=== PATIENT | female | born 1960 | race Caucasian/White ===

== ENCOUNTER 2021-03-01 16:16 | Emergency (ER) | payer OTHER ==
--- NOTE | 2021-03-01 17:49 | RAD REPORT ---
EXAM DESCRIPTION: RAD - Wrist Left 3 View - 03/01/2021 5:31 pm CLINICAL HISTORY: PAIN COMPARISON: No comparisons FINDINGS: Distal radial impaction fracture with intra-articular extension. A fragment including port ions of the articular surface is displaced dorsally. No dislocation. No other fractures identified. IMPRESSION: Distal radial impaction fracture with intra-articular extension.
[2021-03-01] MEDS ORDERED: ONDANSETRON 4 MG (ODT) TAB ONE ×2 (20:41→21:06)
[2021-03-01] MEDS ORDERED: MORPHINE 4 MG/ML SYR ONE ×2 (20:41→21:00)
[2021-03-01] MEDS ORDERED: ONDANSETRON 4 MG/2 ML VIAL ONE (21:00)
--- NOTE | 2021-03-01 21:53 | ER ---
Nurse's Notes [facility] Name: Aura Guidry Age: 60 yrs Sex: Female : 1960 Arrival Date: 03/01/2021 Time: 16:21 Bed 28 Private MD: Diagnosis: Distal Radial Fracture Presentation: 03/01 16:42 Chief complaint: EMS states: fell from standing , felt a pop in left wrist. Coronavirus iw screen: At this time, the client does not indicate any symptoms associated with coronavirus-19. Ebola Screen: Patient negative for fever greater than or equal to 101.5 degrees Fahrenheit, and additional compatible Ebola Virus Disease symptoms Patient denies exposure to infectious person. Patient denies travel to an Ebola-affected area in the 21 days before illness onset. No symptoms or risks identified at this time. Initial Sepsis Screen: Does the patient meet any 2 criteria? No. Patient's initial sepsis screen is negative. Does the patient have a suspected source of infection? No. Patient's initial sepsis screen is negative. Risk Assessment: Do you want to hurt yourself or someone else? Patient reports no desire to harm self or others. 16:42 Method Of Arrival: EMS: [facility] iw 16:42 Acuity: MABEL 4 iw Historical: - Allergies: 21:58 No Known Allergies; ea - Home Meds: 21:58 None [Active]; ea - PMHx: 21:58 None; ea - PSHx: 21:58 None; ea - Immunization history:: Adult Immunizations up to date. - Social history:: Smoking status: unknown. Screenin:22 Abuse screen: Denies threats or abuse. Nutritional screening: No deficits noted. em Tuberculosis screening: No symptoms or risk factors identified. Fall Risk None identified. Assessment: 21:57 General: Appears in no apparent distress. Behavior is calm, cooperative. Pain: ea Complains of pain in left arm. Neuro: Level of Consciousness is awake, alert, obeys commands, Oriented to person, place, time. Respiratory: Airway is patent Respiratory effort is even, unlabored, Respiratory pattern is regular, symmetrical. Derm: Skin is pink, warm \T\ dry. Vital Signs: 17:00 BP 148 / 74; Pulse 90; Resp 16; Temp 98.0; Pulse Ox 95% on R/A; sv ED Course: 16:21 Patient arrived in ED. iw 16:43 Triage completed. iw 17:30 Wrist Left (3 View) XRAY In Process Unspecified. EDMS 19:14 Eusebio Hardin PA is PHCP. [facility] 19:14 Дмитрий Santana MD is Attending Physician. [facility] 19:22 Harshil Benitez, RN is Primary Nurse. em 19:22 Patient has correct armband on for positive identification. Bed in low position. Call em light in reach. 21:45 Orthoglass splint: Sugar tong splint applied on left arm. ds4 21:53 Tai Sierra MD is Referral Physician. [facility] 21:58 Arm band placed on right wrist. Patient placed in an exam room, on a stretcher, on ea pulse oximetry. 21:58 No provider procedures requiring assistance completed. Patient did not have IV access ea during this emergency room visit. Administered Medications: 20:49 Drug: morphine 4 mg Route: IM; Site: left deltoid; ea 20:49 Drug: Zofran (Ondansetron) 4 mg Route: PO; ea Outcome: 21:53 Discharge ordered by . [facility] 21:58 Discharged to home ambulatory. ea 21:58 Condition: stable 21:58 Discharge instructions given to patient, Instructed on discharge instructions, follow up and referral plans. 21:59 Patient left the ED. ea Signatures: Dispatcher [employer] Luz Marina Clarke, RN Eusebio Osman PA PA [facility] Harshil Benitez, RN Kimberly Ruano RN RN iw Swanson, Donovan ds4 Florina Mae RN RN ea
--- NOTE | 2021-03-01 21:53 | EDPHYS ---
Physician Documentation [facility] Name: Aura Guidry Age: 60 yrs Sex: Female : 1960 Arrival Date: 03/01/2021 Time: 16:21 Bed 28 Private MD: ED Physician Дмитрий Santana HPI: 03/01 21:09 This 60 yrs old Female presents to ER via EMS with complaints of Fall Injury. jmm 21:09 Details of fall: The patient fell from an upright position, while walking. Onset: The jmm symptoms/episode began/occurred acutely, just prior to arrival. The patient has not experienced similar symptoms in the past. 60-year-old female that presents emerge department with a left wrist deformity following tripping on her dog's leash. Patient denies head injury, denies vomiting.. Historical: - Allergies: 21:58 No Known Allergies; ea - Home Meds: 21:58 None [Active]; ea - PMHx: 21:58 None; ea - PSHx: 21:58 None; ea - Immunization history:: Adult Immunizations up to date. - Social history:: Smoking status: unknown. ROS: 21:09 Constitutional: Negative for fever, chills, and weight loss, Cardiovascular: Negative jmm for chest pain, palpitations, and edema, Respiratory: Negative for shortness of breath, cough, wheezing, and pleuritic chest pain. 21:09 MS/extremity: Positive for injury or acute deformity, pain. 21:09 All other systems are negative. Exam: 21:09 Constitutional: This is a well developed, well nourished patient who is awake, alert, jmm and in no acute distress. Head/Face: atraumatic. Eyes: EOMI, no conjunctival erythema appreciated ENT: Moist Mucus Membranes Neck: Trachea midline, Supple Chest/axilla: Normal chest wall appearance and motion. Cardiovascular: Regular rate and rhythm. No edema appreciated Respiratory: Normal respirations, no respiratory distress appreciated Abdomen/GI: Non distended, soft Back: Normal ROM Skin: General appearance color normal 21:09 Neuro: Awake and alert, normal gait Psych: Behavior is normal, Mood is normal, Patient is cooperative and pleasant 21:09 Musculoskeletal/extremity: Swelling noted to the left forearm, no snuffbox tenderness appreciated, compartments are soft, neurovascular intact. Vital Signs: 17:00 BP 148 / 74; Pulse 90; Resp 16; Temp 98.0; Pulse Ox 95% on R/A; sv Procedures: 21:13 Splinting: Splint applied to left arm applied by tech. Examined by me, post splint [facility] application: neurovascular intact, 2+ distal pulses palpable, brisk capillary refill noted, Patient tolerated well. MDM: 19:16 Patient medically screened. ian 21:13 Data reviewed: vital signs, nurses notes. [facility] 21:52 Counseling: I had a detailed discussion with the patient and/or guardian regarding: the [facility] historical points, exam findings, and any diagnostic results supporting the discharge/admit diagnosis, radiology results, the need for outpatient follow up, to return to the emergency department if symptoms worsen or persist or if there are any questions or concerns that arise at home. ED course: Patient is alert and non toxic in appearance in the ED. advised follow-up with orthopedics for further evaluation otherwise given strict return precautions. Patient understood and agrees plan of care.. 03/01 16:43 Order name: Wrist Left (3 View) XRAY; Complete Time: 19:16 iw 03/01 21:09 Order name: Sugar Tong Forearm Splint; Complete Time: 21:47 [facility] Administered Medications: 20:49 Drug: morphine 4 mg Route: IM; Site: left deltoid; ea 20:49 Drug: Zofran (Ondansetron) 4 mg Route: PO; ea Disposition Summary: 03/01/21 21:53 Discharge Ordered Location: Home [facility] Condition: Stable [facility] Diagnosis - Distal Radial Fracture [facility] Followup: [facility] - With: Tai Sierra MD - When: 2 - 3 days - Reason: Recheck today's complaints, Continuance of care, Re-evaluation by your physician Discharge Instructions: - Discharge Summary Sheet [facility] - Radial Fracture [facility] Forms: - Medication Reconciliation Form [facility] - Thank You Letter [facility] - Antibiotic Education [facility] - Prescription Opioid Use [facility] Prescriptions: - Ibuprofen 800 mg Oral Tablet - take 1 tablet by ORAL route every 8 hours As needed take with food; 30 tablet; [facility] Refills: 0, Product Selection Permitted - orphenadrine citrate 100 mg Oral Tablet Sustained Release - take 1 tablet by ORAL route 2 times per day As needed; 20 tablet; Refills: 0, giana Product Selection Permitted Addendum: 03/03/2021 06:44 Co-signature as Attending Physician, Дмитрий Santana MD I agree with the assessment and c ramirez plan of care. Signatures: Dispatcher [employer] Дмитрий Denson MD MD cha Mickail, Joel, PA PA jmm Antunez, Elena, RN RN ea
[2021-03-01 23:51] VITALS: BP 148/74; TEMP 98; O2SAT 95
== END 2021-03-01 21:59 | disposition home or self-care (01) ==
LOC: ER 16:16
PROC: 2W3DX1Z Immobilization of Left Lower Arm using Splint (ICD-10-PCS; principal; 2021-03-01)
DX: S52.502A Unspecified fracture of the lower end of left radius, initial encounter for closed fracture (principal); W01.0XXA Fall on same level from slipping, tripping and stumbling without subsequent striking against object, initial encounter; Y93.K1 Activity, walking an animal
CPT/HCPCS: 96372; 99284; J2405

== ENCOUNTER 2021-03-05 09:09 | Day surgery (SDC) | payer OTHER ==
[2021-03-05] MEDS ORDERED: CEFAZOLIN/SWI 1gm 1 GM/10 ML SYR ONE (10:04)
[2021-03-05] MEDS ORDERED: Ringers Lactate 1,000 ML IV ONE (10:04)
--- NOTE | 2021-03-05 11:13 | RAD REPORT ---
EXAM DESCRIPTION: RAD - Wrist Left 2 View - 03/05/2021 11:07 am CLINICAL HISTORY: ORIF OR 4 Pain COMPARISON: Wrist Left 3 View dated 03/01/2021 FINDINGS: Fluoroscopy time 1.3 minutes.
--- NOTE | 2021-03-05 11:18 | P.BOP ---
Preoperative diagnosis: left distal radius fx with median nerve paresthesias Postoperative diagnosis: same Primary procedure: ORIF distal radius with open CT release Estimated blood loss: <10 ccs Anesthesia: General Complications: None Transferred to: Recovery Room Condition: Good
--- NOTE | 2021-03-05 12:35 | OP ---
Date of Procedure: 03/05/2021 Surgeon: Tai Sierra MD Preoperative Diagnosis: Left intra-articular displaced distal radius fracture with median nerve pare sthesias. Postoperative Diagnosis: Left intra-articular displaced distal radius fracture with median nerve par esthesias. Procedure: Left distal radius open reduction and internal fixation using the Acumed II volar radius plating set as well as an open extensile carpal tunnel release for traumatic median nerve paresthesia s. Estimated Blood Loss: Less than 10 mL. Complications: There were no complications. Pathology Specimens: No pathology specimens sent. Indications For Operation: Ms. Guidry is a patient, who unfortunately fell over her dog injuring he r left upper extremity. She was seen in the emergency department where x-rays were taken. She arriv es to my office. X-rays were reviewed, which revealed a -punch type distal radius fracture involv ing primarily the articular surface and dorsal aspect of the wrist. She also has numbness of her nicholson d. She has good feeling of her thumb; however, she has extensive tingling and numbness of the long f cami and the radial half of the ring finger. Risks, benefits, and alternatives to different methods of treating have been discussed with the patient. She states she understands things as presented an d desired to place it at all possible and agrees to proceed. Description Of Procedure: The patient was taken to the operating room and placed in supine position. General anesthesia was obtained by staff. Following this, a well-padded tourniquet was placed on t he superior left arm. The left upper extremity was then prepped and draped in the usual fashion [facility]. Following this, the arm was then elevated, but not exsanguinated and tourniquet was raised. Attention was first turned to the radius where a standard volar approach of incision was then taken d own carefully through skin only. Meticulous hemostasis being maintained using bipolar electrocautery . This led down to the flexor carpi radialis, which was then retracted radialward. The underlying s samia was then exploited and the muscle belly and tendon of the flexor pollicis longus were then retr acted ulnarward to protect the median nerve. This led down to the volar surface of the radius. Ther e was no obvious fracture of the volar surface of the radius. C-arm was used to ensure we were at th e correct level. A drill was then used to make a small trapdoor, which allows for placement of Franklin elevator to elevate the articular surface. This was done with quite a bit of subchondral bone suppo rting it. Also manual traction and pressure demonstrated a near anatomic reduction of the distal rad ius. As this traction was held, the Acumed II plate was then placed using the locking periarticular pegs, which appears to hold the reduction well. The remainder of the plate was then applied in stand jeremy fashion. After this, attention was then turned to the carpal tunnel where a standard slightly la rger than normal carpal tunnel release was then taken down carefully through skin only. Meticulous h emostasis being maintained using bipolar electrocautery. This led down to the palmar fascia, which w as then divided longitudinally. Any obstructions of the transverse carpal ligament were then swept t o the side and the transverse carpal ligament was then divided in a proximal to distal direction unti l there were no constricting bands. It was then released in a distal to proximal direction until the re were no constricting bands. It should be noted that there was easy communication between the 2 in cisions; however, they are not connected and there are no constricting bands throughout the course of the median nerve. The wounds were then irrigated and then closed in standard fashion. A standard d ressing was then applied with a sugar-tong splint. The patient was then awakened and taken to recove ry room in good condition understanding that Anesthesia will provide a block. /NYA Voice ID: [id number] Report ID: [id number]
[2021-03-05] MEDS ORDERED: HYDROCODONE/APAP 10/325 TAB ONE (12:55)
[2021-03-05 13:15] VITALS: TEMP 98.9
[2021-03-05 13:58] VITALS: BP 123/59; O2SAT 100
--- NOTE | 2021-03-05 16:59 | EKG ---
Test Date: 2021-03-05 Test Time: 08:41:06 Finish Repairer: NAGA MEASUREMENT RESULTS: Intervals: Rate: 82 [place]: 164 QRSD: 92 QT: 398 QTc: 464 [place]: P: 59 [place]: 164 QRS: -24 T: 22 INTERPRETIVE STATEMENTS: Normal sinus rhythm Normal ECG No previous ECG available for comparison Electronically Signed On 03-05-21 16:58:45 CDT by Nabeel Gay
== END 2021-03-05 14:17 | disposition home or self-care (01) ==
LOC: OR 09:09
PROVIDERS: ATTEND Orthopaedic Surgery
PROC: 0PSJ04Z Reposition Left Radius with Internal Fixation Device, Open Approach (ICD-10-PCS; principal; 2021-03-05 11:30)
PROC: 01N50ZZ Release Median Nerve, Open Approach (ICD-10-PCS; 2021-03-05 11:30)
DX: S52.502A Unspecified fracture of the lower end of left radius, initial encounter for closed fracture (principal); S64.12XA Injury of median nerve at wrist and hand level of left arm, initial encounter; R20.2 Paresthesia of skin; Z20.822 Contact with and (suspected) exposure to COVID-19
CPT/HCPCS: 93005; 73100; 25608; 64721; U0003; J0690; J7120